=== PATIENT | male | born 1980 | race Caucasian/White ===

== ENCOUNTER 2017-02-03 07:14 | Emergency (ER) | payer BC ==
[~2017-02-03] VITALS: Ht 160 cm; Wt 104.0 kg
[2017-02-03 07:20] VITALS: Ht 160 cm; Wt 104.0 kg
[2017-02-03] MEDS ORDERED: CYCL-319 PO (07:39)
[2017-02-03] MEDS ORDERED: TRAM50TA2 PO (07:39)
--- NOTE | 2017-02-03 09:02 | ERD ---
ER Documentation Chief Complaint Date/Time DATE: 02/03/17 TIME: 08:01 Chief Complaint PAIN RADIATING FROM LOWER BACK DOWN LT LEG HPI 36-year-old male coming in complaining of left lower back pain 1 day. Patient states he is just been diagnosed with plantar fasciitis and taking naproxen for foot pain. Patient denies traumatic injury. Describes pain as sharp pinching pain radiating down the left leg. Has never had this before. Denies any change in urination or bowel movement and denies saddle anesthesia. Denies fever. Pain is worse with ambulation. Denies numbness or tingling to the left lower extremity. ROS All systems reviewed and are negative except as per history of present illness. Medications Home Meds Active Scripts Tramadol HCl (Tramadol HCl) 50 Mg Tablet, 50 MG PO Q4 Y for PAIN, #10 TAB Prov:SHARON EDDY PA-C 02/03/17 Cyclobenzaprine Hcl* (Cyclobenzaprine Hcl*) 10 Mg Tablet, 10 MG PO TID, #15 TAB Prov:SHARON EDDY PA-C 02/03/17 PMhx/Soc Hx Alcohol Use: No Hx Substance Use: No Hx Tobacco Use: No Smoking Status: Never smoker Physical Exam Vitals Vital Signs Date Time Temp Pulse Resp B/P Pulse Ox O2 Delivery O2 Flow Rate FiO2 02/03/17 07:20 98.1 69 16 134/89 95 Physical Exam GENERAL: The patient is well-appearing, well-nourished, in no acute distress CHEST: Clear to auscultation bilaterally. There are no rales, wheezes or rhonchi. HEART: Regular rate and rhythm. No murmurs, clicks, rubs or gallops. No S3 or S4. BACK: No midline tenderness. Mild tenderness palpation over the left sciatic distribution region. EXTREMITIES: Equal pulses bilaterally. There is no peripheral clubbing, cyanosis or edema. No focal swelling or erythema. Full range of motion. Grossly neurovascularly intact. NEUROLOGIC: Alert and oriented. Cranial nerves II through XII intact. Motor strength in all 4 extremities with 5 out of 5 strength. Sensation grossly intact. Normal speech and gait. Babinski negative. DTR 2+ throughout. SKIN: There is no apparent rash or petechiae. The skin is warm and dry. Procedures/MDM MDM: 36-year-old male complaining of left back pain. I have low suspicion for cauda equina, discitis, epidural abscess. Patient's pain is located down the distribution of the sciatic nerve. I feel the patient's plantar fasciitis has caused patient to ambulate with distortion causing pain to his sciatic nerve. I did not feel that there is indication for imaging or blood work at this time. I have low suspicion for abdominal emergency radiating to the back. Patient will be discharged with pain medication and steroids and recommended to follow- up with primary care within 1-2 days for close evaluation. Patient is told symptoms change or worsen to return to the ER. Departure Diagnosis: Primary Impression: Back pain Condition: Stable Patient Instructions: Back Pain (Acute Or Chronic) Referrals: [facility] YOU HAVE RECEIVED A MEDICAL SCREENING EXAM AND THE RESULTS INDICATE THAT YOU DO NOT HAVE A CONDITION THAT REQUIRES URGENT TREATMENT IN THE EMERGENCY DEPARTMENT. FURTHER EVALUATION AND TREATMENT OF YOUR CONDITION CAN WAIT UNTIL YOU ARE SEEN IN YOUR DOCTORS OFFICE WITHIN THE NEXT 1-2 DAYS. IT IS YOUR RESPONSIBILITY TO MAKE AN APPOINTMENT FOR FOLOW-UP CARE. IF YOU HAVE A PRIMARY DOCTOR --you should call your primary doctor and schedule an appointment IF YOU DO NOT HAVE A PRIMARY DOCTOR YOU CAN CALL OUR PHYSICIAN REFERRAL HOTLINE AT IF YOU CAN NOT AFFORD TO SEE A PHYSICIAN YOU CAN CHOSE FROM THE FOLLOWING [facility] [address] [facility] [address] [facility] [facility] [address] [facility] [facility] [address] [facility]. [facility] [address] [facility] [facility]. [address] Additional Instructions: FOLLOW UP WITH YOUR PRIMARY CARE PHYSICIAN TOMORROW.Return to this facility if you are not improving as expected. SHARON EDDY PA-C Feb 03, 2017 08:11
== END 2017-02-03 07:53 | disposition home or self-care (01) ==
LOC: FTE 07:14
DX: M54.5 Low back pain (principal)
CPT/HCPCS: 99284

== ENCOUNTER 2017-11-07 17:10 | Emergency (ER) | END 2017-11-07 19:18 | disposition home or self-care (01) ==